=== PATIENT | male | born 1960 | race Caucasian/White ===

== ENCOUNTER 2018-05-13 06:51 | Day surgery (SDC) | payer BC, OTHER ==
[2018-05-13] MEDS ORDERED: Midazolam 1 MG/ML 2 ML SDV ONE (07:04)
[2018-05-13] MEDS ORDERED: fentaNYL 100 MCG/2 ML SDV ONE (07:04)
[2018-05-13] MEDS ORDERED: Propofol 200 MG/20 ML SDV ONE (07:04)
[2018-05-13] MEDS ORDERED: Dextrose 5%-Lactated Ringers 1,000 ML IV SCH (07:15)
[2018-05-13] MEDS ORDERED: Bupivacaine 0.5% 50 ML MDV ONE (08:30)
[2018-05-13] MEDS ORDERED: Lidocaine 1% with EPINEPHrine 1:100,000 50 ML MDV ONE (08:30)
[2018-05-13] MEDS ORDERED: Bacitracin Oint 1 GM U/D Packet ONE (08:34)
--- NOTE | 2018-05-17 11:02 | OR ---
CORRECTED REPORT: 05/24/2018 DATE OF PROCEDURE: 05/13/2018 PREOPERATIVE DIAGNOSES: 1. Indication for screening colonoscopy. 2. Polypoid skin lesion in the right thigh. POSTOPERATIVE DIAGNOSES: 1. Colonoscopy showing a single polyp in the distal sigmoid colon. 2. Polypoid skin lesion in the right thigh (2.3 cm). PROCEDURES PERFORMED: 1. Flexible colonoscopy with polypectomy by snare technique (11944). 2. Excision of polypoid lesion, right thigh (26625). ANESTHESIA: Local plus IV sedation. INDICATIONS: A 58-year-old male presenting with indication for a screening colonoscopy. He does not have any personal or family history of colon malignancy or adenomas. He also has a 2.3 cm polypoid lesion involving the skin in the lateral mid right thigh which looks chronically irritated and would appear to be appropriate to excise. Plan is to proceed with a flexible colonoscopy with biopsy and/or polypectomy as indicated along with excision of the skin lesion. The skin lesion has a fairly superficial pedunculated appearance, so this would be excised and not specifically closed. Potential risks including bleeding and perforation were discussed, and the patient wishes to proceed. DETAILS OF PROCEDURE: The patient was taken to the operating room, placed in the left lateral decubitus position. IV sedation was administered after which the digital rectal exam was performed, it was unremarkable. The colonoscope was advanced to the level of the cecum. To that level, the patient was noted to have a single polyp located around 20 cm from dentate line, i.e., in the distal sigmoid colon. Apart from that, there were no diverticula and no additional areas of neoplastic change and no obvious areas of colitis. The prep was quite good with only a small amount of liquid stool being present. Upon identifying the polyp on retrieval of the scope, the polyp which measured around 3 to 4 mm, was encircled at its base, and cauterized with a snare and then evacuated via suction through the colonoscope and sent for histologic evaluation. Good hemostasis was confirmed at the polypectomy site and the scope was withdrawn and no additional abnormalities being noted. At this point, the polypoid skin lesion was anesthetized with some 1% lidocaine mixed with Marcaine and excised more or less flush with the surrounding skin. This was treated as a small open area of skin opening, it is quite superficial, it should likely heal fairly well secondarily. Therefore, a Band-Aid was applied and the procedure concluded. The patient was taken to the recovery room in satisfactory condition. ADDENDUM: The dimension of the skin lesion (lesion plus margin) was 1.2cm. Mitch Garcia MD Job #: [id number]
== END 2018-05-13 10:40 | disposition home or self-care (01) ==
LOC: JP.SDS 06:51
PROVIDERS: ATTEND Surgery
DX: Z12.11 Encounter for screening for malignant neoplasm of colon (principal); D12.5 Benign neoplasm of sigmoid colon; D17.23 Benign lipomatous neoplasm of skin and subcutaneous tissue of right leg
CPT/HCPCS: 88304; 88305; J2250; J2704; J3010; J3490; J7042

== ENCOUNTER 2020-04-09 09:44 | Emergency (ER) | payer OTHER ==
[2020-04-09] MEDS ORDERED: Bacitracin Oint 1 GM U/D Packet TOP ONE (09:52)
--- NOTE | 2020-04-09 10:16 | EDM.PDOC ---
ED HPI GENERAL MEDICAL PROBLEM - General Stated Complaint: CUT FINGER ON L HAND Time Seen by Provider: 04/09/20 09:50 Source of Information: Reports: Patient History Limitations: Reports: No Limitations - History of Present Illness INITIAL COMMENTS - FREE TEXT/NARRATIVE: 60-year-old male was stripping wire when he cut the palmar surface of the distal index finger on the left hand with a sharp blade. No other injury. Onset: Sudden Duration: Hour(s): (Within the last hour) Location: Reports: Upper Extremity, Left Associated Symptoms: Reports: No Other Symptoms - Related Data Allergies Allergy/AdvReac Type Severity Reaction Status Date / Time No Known Allergies Allergy Verified 05/13/18 07:41 Home Meds: Home Meds NK [No Known Home Meds] 05/12/18 [History] Past Medical History Cardiovascular History: Reports: Other (See Below) Other Cardiovascular History: bilateral popiteal artery entrapment - Past Surgical History Other HEENT Surgeries/Procedures: Dental implant on front canine GI Surgical History: Reports: Hernia Repair/Other Social & Family History - Family History Family Medical History: No Pertinent Family History - Tobacco Use Tobacco Use Status *Q: Never Tobacco User - Caffeine Use Caffeine Use: Reports: None - Recreational Drug Use Recreational Drug Use: No Review of Systems - Review of Systems Review Of Systems: See Below Constitutional: Denies: Fever Respiratory: Reports: No Symptoms GI/Abdominal: Reports: Nausea Skin: Reports: Diaphoresis Psychiatric: Reports: Anxiety ED EXAM, GENERAL - Physical Exam Exam: See Below Exam Limited By: No Limitations General Appearance: Alert, Anxious Respiratory/Chest: No Respiratory Distress Extremities: Other (Exam is otherwise limited the left hand. The patient has a 3.5 cm laceration starting just distal to the DIP joint palmar surface of the index finger extending to the top of the finger but avoids the nail. Normal CMS.) Neurological: Alert, Oriented Psychiatric: Anxious Course - Vital Signs Last Recorded V/S: Last Vital Signs Temp 97.1 F 04/09/20 09:58 Pulse 64 04/09/20 09:58 Resp 16 04/09/20 09:58 BP 133/78 04/09/20 09:58 Pulse Ox 96 04/09/20 09:58 - Orders/Labs/Meds Meds: Medications Discontinued Medications Generic Name Dose Route Start Last Admin Trade Name Freq PRN Reason Stop Dose Admin Bacitracin 1 dose 04/09/20 09:52 04/09/20 10:00 Bacitracin Oint 1 Gm TOP 04/09/20 09:53 1 dose ONETIME ONE Administration Lidocaine HCl 5 ml 04/09/20 09:52 04/09/20 10:00 Xylocaine-Mpf 1% INJECT 04/09/20 09:53 5 ml ONETIME ONE Administration - Re-Assessments/Exams Free Text/Narrative Re-Assessment/Exam: 04/09/20 10:15 After thoroughly washing the laceration and soaking in saline, 1% lidocaine was infiltrated in the wound clean. Five 4-0 Ethilon sutures were used to close the laceration. Topical bacitracin and dressing was applied, he can increase activity as tolerated. Keep the wound clean and covered while healing, and sutures can be removed in 8 days. Return sooner if worries of infection or not healing satisfactorily Departure - Departure Time of Disposition: 10:23 Disposition: Home, Self-Care 01 Clinical Impression: Laceration of left index finger Qualifiers: Encounter type: initial encounter Damage to nail status: without damage Foreign body presence: without foreign body Qualified Code(s): S61.211A - Laceration without foreign body of left index finger without damage to nail, initial encounter - Discharge Information Instructions: Laceration Care, Adult, [id number] Referrals: Raphael Guzman MD [Primary Care Provider] - Forms: ED Department Discharge Care Plan Goals: Keep wound covered and clean while healing. Sutures can be removed in 8 days, recheck sooner if concerns of infection or not healing satisfactorily. Sepsis Event Note (ED) - Evaluation Sepsis Screening Result: No Definite Risk - Focused Exam Vital Signs: Vital Signs Temp Pulse Resp BP Pulse Ox 04/09/20 09:58 97.1 F 64 16 133/78 96 04/09/20 09:55 97.1 F 64 16 133/78 96
== END 2020-04-09 10:26 | disposition home or self-care (01) ==
LOC: JP.ED 09:44
DX: S61.211A Laceration without foreign body of left index finger without damage to nail, initial encounter (principal); W26.0XXA Contact with knife, initial encounter
CPT/HCPCS: 12002; 99282; J2001

== ENCOUNTER 2020-07-01 07:16 | Day surgery (SDC) | payer OTHER ==
[~2020-07-01 07:16] MED LIST: Midazolam 1 MG/ML 2 ML SDV ONE; Propofol 200 MG/20 ML SDV ONE; fentaNYL 100 MCG/2 ML SDV ONE
[2020-07-01] MEDS ORDERED: Dextrose 5%-Lactated Ringers 1,000 ML IV SCH (08:00)
--- NOTE | 2020-07-08 16:07 | OR ---
DATE OF PROCEDURE: 07/01/2020 SURGEON: Mitch Garcia MD PREOPERATIVE DIAGNOSIS: History of colon polyps. POSTOPERATIVE DIAGNOSES: 1. History of colon polyps with no recurrent polyps on today's examination. 2. Uncomplicated left colonic diverticulosis. OPERATIVE PROCEDURE: Flexible colonoscopy. ANESTHESIA: IV sedation. INDICATION FOR PROCEDURE: This is a 60-year-old male indicated for a followup screening colonoscopy. Has a history of colon polyps in the past. Plan is to proceed with a colonoscopy with biopsies and/or polypectomy as indicated. Potential risks including bleeding and perforation were discussed, and the patient wishes to proceed. DETAILS OF PROCEDURE: The patient was taken to the operating room, placed in a left lateral decubitus position. IV sedation was administered, after which the initial digital rectal exam was performed. It was unremarkable. Colonoscope was passed into the rectum with retroflexion revealing uncomplicated hemorrhoidal columns. Scope was eventually passed to the level of the cecum. The prep was quite good with only a small amount of liquid stool present. To that level, the patient had some uncomplicated colonic diverticula. Otherwise, there were no areas of colitis. No polyps or other signs of neoplasia. Scope was then withdrawn, the above findings reconfirmed, and the procedure then concluded. The patient was taken to the recovery room in satisfactory condition. Recommendation would be to repeat the colonoscopy in 5 years. Mitch Garcia MD /[id number]
== END 2020-07-01 11:10 | disposition home or self-care (01) ==
LOC: JP.SDS 07:16
PROVIDERS: ATTEND Surgery
DX: Z12.11 Encounter for screening for malignant neoplasm of colon (principal); K64.9 Unspecified hemorrhoids; K57.30 Diverticulosis of large intestine without perforation or abscess without bleeding; Z86.010 Personal history of colon polyps
CPT/HCPCS: J2250; J2704; J3010; J7121

== ENCOUNTER 2021-05-13 16:11 | Emergency (ER) | payer BC ==
[2021-05-13] MEDS ORDERED: Diltiazem 25 MG/5 ML SDV IVPUSH ONE (16:20)
[2021-05-13] MEDS ORDERED: Diltiazem IR 30 MG Tab PO ONE ×2 (17:38→18:24)
== END 2021-05-13 18:53 | disposition home or self-care (01) ==
LOC: JP.ED 16:11
DX: I48.91 Unspecified atrial fibrillation (principal)
CPT/HCPCS: 36415; 80048; 84439; 84443; 84484; 85025; 93005; 96374; 99285; A9270; J3490

== ENCOUNTER 2024-01-27 09:58 | Emergency (ER) | payer BC ==
[2024-01-27] MEDS: Bacitracin Oint 1 GM U/D Packet TOP ONE (10:31)
[2024-01-27] MEDS: Lidocaine 1% 10 ML MDV INJECT ONE (10:31)
== END 2024-01-27 11:21 | disposition home or self-care (01) ==
LOC: JP.ED 09:58
DX: S61.011A Laceration without foreign body of right thumb without damage to nail, initial encounter (principal); Z79.02 Long term (current) use of antithrombotics/antiplatelets; W31.2XXA Contact with powered woodworking and forming machines, initial encounter
CPT/HCPCS: 12001; 99282; 99283

== ENCOUNTER 2024-03-04 08:53 | Emergency (ER) | payer BC ==
[2024-03-04] MEDS: Lidocaine 1% 10 ML MDV INJECT ONE (09:13)
[2024-03-04] MEDS: Bacitracin Oint 1 GM U/D Packet TOP ONE (09:13)
[2024-03-04] MEDS: Bacitracin Oint 1 GM U/D Packet ONE (09:14)
[2024-03-04] MEDS: Lidocaine 1% 10 ML MDV ONE (09:14)
== END 2024-03-04 10:11 | disposition home or self-care (01) ==
LOC: JP.ED 08:53
DX: S01.511A Laceration without foreign body of lip, initial encounter (principal); Z79.82 Long term (current) use of aspirin; Z79.2 Long term (current) use of antibiotics; W54.0XXA Bitten by dog, initial encounter
CPT/HCPCS: 12011; 99282

== ENCOUNTER 2025-02-01 13:14 | Emergency (ER) | payer BC ==
[2025-02-01] MEDS: Bacitracin Oint 1 GM U/D Packet TOP ONE (13:42)
== END 2025-02-01 14:08 | disposition home or self-care (01) ==
LOC: JP.ED 13:14
DX: S61.211A Laceration without foreign body of left index finger without damage to nail, initial encounter (principal); Z79.899 Other long term (current) drug therapy; W29.3XXA Contact with powered garden and outdoor hand tools and machinery, initial encounter
CPT/HCPCS: 12001; 99282; 99283; J0665